=== PATIENT | female | born 1970 | race Caucasian/White ===

== ENCOUNTER 2022-12-19 09:41 | Day surgery (SDC) | payer OTHER ==
[~2022-12-19 09:41] MED LIST: Lactated Ringers 1,000 ML IV SCH
[2022-12-19] MEDS ORDERED: Propofol 200 MG/20 ML SDV ONE (11:00)
[2022-12-19] MEDS ORDERED: fentaNYL 100 MCG/2 ML SDV ONE (11:00)
== END 2022-12-19 12:30 | disposition home or self-care (01) ==
LOC: VM.SDS 09:41
PROVIDERS: ATTEND Family Medicine
DX: K57.30 Diverticulosis of large intestine without perforation or abscess without bleeding (principal); K64.9 Unspecified hemorrhoids; E78.5 Hyperlipidemia, unspecified; E03.9 Hypothyroidism, unspecified; K21.9 Gastro-esophageal reflux disease without esophagitis; F32.A Depression, unspecified; K58.9 Irritable bowel syndrome, unspecified; E55.9 Vitamin D deficiency, unspecified; G47.00 Insomnia, unspecified; E66.9 Obesity, unspecified; Z90.49 Acquired absence of other specified parts of digestive tract; Z98.890 Other specified postprocedural states; Z79.890 Hormone replacement therapy; Z79.899 Other long term (current) drug therapy
CPT/HCPCS: 00811; J2704; J3010; J7120